=== PATIENT | male | born 1955 | race African-American/Black ===

== ENCOUNTER 2021-03-24 14:41 | Emergency (ER) | payer OTHER, SELFPAY ==
--- NOTE | ~2021-03-24 | US_ITS ---
EXAMINATION: ULTRASOUND SCROTUM. CLINICAL INFORMATION: Hydrocele. Pain. COMPARISON: None TECHNIQUE: Routine ultrasound scrotum and Doppler imaging was performed. FINDINGS: The right testes is homogeneous in echotexture measuring 4.7 x 2.1 x 3.2 cm and volume 16.5 mL. No focal lesion seen. The right epididymis is visualized and appears normal with a small epididymal cyst measuring 0.2 x 0.2 cm. There is normal vascular flow seen to right testes and epididymis. There is no hydrocele or varicocele. The left testes measures 4.0 x 2.4 x 2.7 cm and volume 13.8 mL. There is homogeneous in echotexture. Normal vascular the left scrotum. There is a large left hydrocele with epididymis not visualized. There is a small left appendage. The scrotal wall is normal. Normal vascular flow seen to left testes. US/US venous duplex LE RT IMPRESSION: Large left hydrocele with left appendage visualized. Left epididymis is not seen. Normal bilateral testes with normal vascular flow on Doppler study. Small right epididymal cyst.
--- NOTE | ~2021-03-24 | US_ITS ---
EXAMINATION: ULTRASOUND SCROTUM. CLINICAL INFORMATION: Hydrocele. Pain. COMPARISON: None TECHNIQUE: Routine ultrasound scrotum and Doppler imaging was performed. FINDINGS: The right testes is homogeneous in echotexture measuring 4.7 x 2.1 x 3.2 cm and volume 16.5 mL. No focal lesion seen. The right epididymis is visualized and appears normal with a small epididymal cyst measuring 0.2 x 0.2 cm. There is normal vascular flow seen to right testes and epididymis. There is no hydrocele or varicocele. The left testes measures 4.0 x 2.4 x 2.7 cm and volume 13.8 mL. There is homogeneous in echotexture. Normal vascular the left scrotum. There is a large left hydrocele with epididymis not visualized. There is a small left appendage. The scrotal wall is normal. Normal vascular flow seen to left testes. US/US scrotum IMPRESSION: Large left hydrocele with left appendage visualized. Left epididymis is not seen. Normal bilateral testes with normal vascular flow on Doppler study. Small right epididymal cyst.
[2021-03-24 15:27] VITALS: BP 100/67; PULSE 70; RESP 18; TEMP 36.8; O2SAT 100; BMI 18.7
[2021-03-24 19:53] VITALS: BP 118/64; PULSE 73; RESP 18; TEMP 36.4; O2SAT 100
--- NOTE | 2021-03-24 20:41 | ED.GENADULT ---
HPI - General Adult General Chief complaint: General Medical Stated complaint: infection in groin area Time Seen by Provider: 03/24/21 20:41 Source: patient Mode of arrival: ambulatory Limitations: no limitations History of Present Illness HPI narrative: patient's history of unprovokedright leg DVT since 08/2010 was on Coumadin until 2014 patient is homeless and stopped taking it as he is homeless now and has not been followed up with anyone now complaining of discomfort in right thigh for last few months no leg swelling no shortness of breath no leg pain. Also patient complaining of some swelling of scrotum for last 3 months after straining no known trauma no problem urinating. No fever or chills Related Data Previous Rx's Medication Instructions Recorded apixaban [Eliquis DVT-PE Treat 30D 5 mg PO PER PKG DIR #74 ea 03/24/21 Start] Allergies Allergy/AdvReac Type Severity Reaction Status Date / Time codeine [CODEINE] Allergy Unknown VOMITING Unverified 03/24/21 15:27 Review of Systems Review of Systems: Constitutional : No Weight loss, No Fever, No Chills ENT/Mouth : No sore throat, No Rhinorrhea Eyes: No Eye Pain, No Swelling Cardiovascular : No Chest Pain, no palpitations Respiratory : No Cough, No Sputum, no shortness of breath Gastrointestinal : no Nausea, No Vomiting, No Diarrhea, No abdominal Pain, no black stools Genitourinary : No Dysuria, No Urinary Frequency Musculoskeletal : No joint pain, No Myalgias, No Joint Swelling Skin : No Skin Lesions, No rash Neuro : No Weakness, No Numbness, No Dizziness, No Headache Psych : No Anxiety/Panic, No Depression Heme/Lymph: No Bruising, No Lymphadenopathy Endocrine : No Polyuria, No Polydipsia All other systems reviewed and are negative [facility] Past Medical History Medical History Blood clot in vein Social History Social History Advance Directives: No Advance Directives Information Provided: Yes Physical Exam Vital Signs: Vital Signs: Last Vital Signs Temp 97.5 F 03/24/21 19:53 Pulse 78 03/24/21 23:46 Resp 16 03/24/21 23:46 BP 116/74 03/24/21 23:46 Pulse Ox 99 03/24/21 23:46 Body Mass Index 18.7 Const: General: no acute distress Orientation/consciousness: patient oriented x3 HENMT: Head: Yes normocephalic Eyes: General: appearance normal, both eyes and all related structures Neck: Neck: Yes normal visual inspection Resp: Effort & Inspection: normal respiratory effort Auscultation: clear to auscultation bilaterally Cardio: Palpation: normal PMI Rate: regular rate Rhythm: regular rhythm Heart sounds: S1 normal heart sound present and S2 normal heart sound present GI: Inspection: Yes normal to inspection Palpation (GI): Soft to palpation and nontender : General: Yes Bimanual renal exam normal bilaterally Penis: normal penis Meatus: meatus normal Scrotum: Hydrocele present bilateral and diffuse Back/Spine/Pelvis: Thoracic/Lumbar Spine: thoracic and lumbar spine normal to inspection Skin: General skin exam: no rashes or lesions noted Neuro: General: patient oriented x3 Extrem: Upper/lower leg/hip images: 1. mild tenderness right thigh no swelling noticed no skin changes Medical Decision Making MDM Narrative Medical decision making narrative: patient with left femoral DVT and left hydrocele was started on Eliquis advised to follow with urologist Lab Data Lab results reviewed: Yes I reviewed the patient's lab results. Result diagrams: 03/24/21 21:18 03/24/21 21:18 Labs: Lab Results 03/24/21 03/24/21 03/24/21 Range/Units 21:18 21:18 21:18 WBC 5.1 (4.8-10.8) X10*3/uL RBC 4.01 L (4.60-5.80) X10*6/uL Hgb 12.9 L (14.0-18.0) g/dl Hct 38.1 L (42-52) % MCV 95.0 (80-98) fL MCH 32.2 (27.0-33.0) pg MCHC 33.9 (31.0-36.0) g/dl RDW 11.8 (11.0-16.0) % Plt Count 140 L (160-400) X10*3/uL MPV 9.9 (9.4-12.4) fL Immature Gran % (Auto) 0.2 (0.0-0.4) % Neut % (Auto) 56.5 (45-73) % Lymph % (Auto) 26.9 (20-40) % Turner % (Auto) 8.8 (2-11) % Eos % (Auto) 7.2 H (0-4) % Baso % (Auto) 0.4 (0-2) % Lymph # (Auto) 1.4 (1.2-4.9) X10*3/uL Turner # (Auto) 0.5 (0.1-1.2) X10*3/uL Eos # (Auto) 0.4 (0.0-0.4) X10*3/uL Baso # (Auto) 0.0 (0.0-0.2) X10*3/uL Abs Immat Gran (auto) 0.01 (0.00-0.03) X10*3/uL Absolute Neuts (auto) 2.9 (2.0-8.3) X10*3/uL Absolute Nucleated RBC 0.000 (0.0-0.012) X10*3/uL Nucleated RBC % (auto) 0.0 (0.0-0.2) /100WBC Smear Tech's Comments VERIFIED PT 11.1 (10.8-13.0) SEC INR 0.9 (0.9-1.1) APTT 39.4 H (24.1-38.0) SEC Sodium 140 (135-145) mmol/L Potassium 4.9 (3.3-5.1) mmol/L Chloride 104 (96-108) mmol/L Carbon Dioxide 29 (22-29) mmol/L Anion Gap 12 (12-20) BUN 25 H (9-16) mg/dL Creatinine 1.20 (0.5-1.4) mg/dL Estim Creat Clear Calc 55.0 Estimated GFR > 60 Random Glucose 101 (60-115) mg/dL Calcium 9.3 (8.4-10.2) mg/dL Urine Color Urine Appearance Urine pH (5.0-8.0) Ur Specific [place] (1.005-1.025) Urine Protein (NEG-TRACE) MG/DL Urine Glucose (UA) (NEG) MG/DL Urine Ketones (NEG) MG/DL Urine Blood (NEG) Urine Nitrite (NEG) Ur Leukocyte Esterase (NEG) Urine RBC (0) /HPF Urine WBC (0-4) /HPF Ur Squamous Epith Cells /LPF Urine Bacteria /LPF 03/24/21 Range/Units 21:57 WBC (4.8-10.8) X10*3/uL RBC (4.60-5.80) X10*6/uL Hgb (14.0-18.0) g/dl Hct (42-52) % MCV (80-98) fL MCH (27.0-33.0) pg MCHC (31.0-36.0) g/dl RDW (11.0-16.0) % Plt Count (160-400) X10*3/uL MPV (9.4-12.4) fL Immature Gran % (Auto) (0.0-0.4) % Neut % (Auto) (45-73) % Lymph % (Auto) (20-40) % Turner % (Auto) (2-11) % Eos % (Auto) (0-4) % Baso % (Auto) (0-2) % Lymph # (Auto) (1.2-4.9) X10*3/uL Turner # (Auto) (0.1-1.2) X10*3/uL Eos # (Auto) (0.0-0.4) X10*3/uL Baso # (Auto) (0.0-0.2) X10*3/uL Abs Immat Gran (auto) (0.00-0.03) X10*3/uL Absolute Neuts (auto) (2.0-8.3) X10*3/uL Absolute Nucleated RBC (0.0-0.012) X10*3/uL Nucleated RBC % (auto) (0.0-0.2) /100WBC Smear Tech's Comments PT (10.8-13.0) SEC INR (0.9-1.1) APTT (24.1-38.0) SEC Sodium (135-145) mmol/L Potassium (3.3-5.1) mmol/L Chloride (96-108) mmol/L Carbon Dioxide (22-29) mmol/L Anion Gap (12-20) BUN (9-16) mg/dL Creatinine (0.5-1.4) mg/dL Estim Creat Clear Calc Estimated GFR Random Glucose (60-115) mg/dL Calcium (8.4-10.2) mg/dL Urine Color YELLOW Urine Appearance CLEAR Urine pH 6.5 (5.0-8.0) Ur Specific [place] 1.015 (1.005-1.025) Urine Protein NEG (NEG-TRACE) MG/DL Urine Glucose (UA) NEG (NEG) MG/DL Urine Ketones NEG (NEG) MG/DL Urine Blood TRACE (NEG) Urine Nitrite NEG (NEG) Ur Leukocyte Esterase NEG (NEG) Urine RBC 1-4 (0) /HPF Urine WBC 0-2 (0-4) /HPF Ur Squamous Epith Cells TRACE /LPF Urine Bacteria TRACE /LPF Discharge Plan Discharge Clinical Impression: DVT of leg (deep venous thrombosis), Hydrocele Patient Disposition: Home, Self-Care Instructions: Hydrocele (ED), Deep Vein Thrombosis (ED) Additional Instructions: take Eliquis 10 mg twice daily for 7 days then 5 mg twice daily. Follow-up with primary care doctor for further follow-up follow-up with urologist for surgery for hydrocele scrotal support as advised Prescriptions: New Eliquis DVT-PE Treat 30D Start 5 mg (74 tabs) tablets,dose pack 5 mg PO PER PKG DIR Qty: 74 RF: 0 Referrals: Elvin Cox MD [Physician] - 1 week Interventions: ED Discharge Assessment Last Done: 03/24/21 23:47 Discharge Date/Time: 03/24/21 23:48
[2021-03-24 21:30] LABS: Basophils Percent Auto 0.4 % (0-2); Hemoglobin 12.9 g/dl (14.0-18.0); Imm Gran Abs Auto 0.01 X10*3/uL (0.00-0.03); Imm Gran Pct Auto 0.2 % (0.0-0.4); MANUAL DIFF FLAG SCAN; PLT CLUMP 1; Red Cell Distribution Width 11.8 % (11.0-16.0); SCAN SMEAR FLAG 1
[2021-03-24 21:32] LABS: Eosinophils Absolute Auto 0.4 X10*3/uL (0.0-0.4); Eosinophils Percent Auto 7.2 % (0-4); Hematocrit 38.1 % (42-52); Lymphocytes Absolute Auto 1.4 X10*3/uL (1.2-4.9); Lymphocytes Percent Auto 26.9 % (20-40); Mean Corpuscular HGB Conc 33.9 g/dl (31.0-36.0); Mean Corpuscular Hemoglobin 32.2 pg (27.0-33.0); Mean Platelet Volume 9.9 fL (9.4-12.4); Monocytes Absolute Auto 0.5 X10*3/uL (0.1-1.2); Monocytes Percent Auto 8.8 % (2-11); Neutrophils Absolute Auto 2.9 X10*3/uL (2.0-8.3); Neutrophils Percent Auto 56.5 % (45-73); Platelet Count 140 X10*3/uL (160-400); Red Blood Count 4.01 X10*6/uL (4.60-5.80); White Blood Count 5.1 X10*3/uL (4.8-10.8)
[2021-03-24 21:35] LABS: SLIDE REVIEW VERIFIED
[2021-03-24 21:36] LABS: INTERNATIONAL NORM RATIO 0.9 (0.9-1.1); Prothrombin Time 11.1 SEC (10.8-13.0)
[2021-03-24 21:38] LABS: Partial Thromboplastin Time 39.4 SEC (24.1-38.0)
[2021-03-24 21:56] LABS: Anion Gap 12 (12-20); Blood Urea Nitrogen 25 mg/dL (9-16); Calcium 9.3 mg/dL (8.4-10.2); Carbon Dioxide 29 mmol/L (22-29); Chloride 104 mmol/L (96-108); Estimated Glomerular Filt Rate > 60; Glucose Random 101 mg/dL (60-115); Potassium 4.9 mmol/L (3.3-5.1); Sodium 140 mmol/L (135-145)
[2021-03-24 22:18] LABS: Glucose Urine UA NEG (NEG); Leukocyte Esterase Urine NEG (NEG); Nitrite Urine NEG (NEG); PH 6.5 (5.0-8.0); Specific Gravity - Urine 1.015 (1.005-1.025); Urine Blood TRACE (NEG); Urine Ketones NEG (NEG); Urine Protein NEG (NEG-TRACE)
[2021-03-24 22:19] LABS: Appearance Urine CLEAR; Color Urine YELLOW
[2021-03-24 22:25] LABS: WBC Urine 0-2 /HPF (0-4)
[2021-03-24 22:26] LABS: Bacteria Urine TRACE /LPF; Squamous Epithelial Cell Urine TRACE /LPF
[2021-03-24] MEDS: traMADoL HCL 50 MG TABLET PO (23:36)
[2021-03-24] MEDS: Apixaban 5 MG TABLET 10 MG PO (23:36)
--- NOTE | 2021-03-24 23:44 | PC.NURSE ---
pt ambulatory with steady gait, family at bedside. pt agrees to take eliquis rx once discharged and follow up with MD Cox. pt able to void and empty bladder.
--- NOTE | 2021-03-24 23:45 | PC.NURSE ---
pt had 3 sandwiches and 3 containers of juice while awaiting results.
[2021-03-24 23:46] VITALS: BP 116/74; PULSE 78; RESP 16; O2SAT 99
== END 2021-03-24 23:48 | disposition home or self-care (01) ==
PROVIDERS: Emergency Provider Internal Medicine
DX: I82.811 Embolism and thrombosis of superficial veins of right lower extremity (principal); I82.431 Acute embolism and thrombosis of right popliteal vein; N43.3 Hydrocele, unspecified; Z86.718 Personal history of other venous thrombosis and embolism; Z59.0 Homelessness
CPT/HCPCS: 36415; 76870; 80048; 81001; 85025; 85610; 85730; 93971; 99284

== ENCOUNTER → 2021-05-06 13:47 | Outpatient (BNVA) | payer MEDICARE, MEDICAID, SELFPAY | PROVIDERS: Visit Provider Urology | DX: N50.82 Scrotal pain (principal); N43.3 Hydrocele, unspecified; Z88.5 Allergy status to narcotic agent | CPT/HCPCS: 99202 ==

== ENCOUNTER 2021-06-16 12:39 | Outpatient (REF) | payer MEDICARE, MEDICAID, SELFPAY ==
[2021-06-16 13:16] LABS: MANUAL DIFF FLAG NO
[2021-06-16 13:19] LABS: Basophils Percent Auto 0.7 % (0-2); Eosinophils Absolute Auto 0.2 X10*3/uL (0.0-0.4); Eosinophils Percent Auto 4.5 % (0-4); Hematocrit 41.1 % (42-52); Hemoglobin 13.9 g/dl (14.0-18.0); Imm Gran Abs Auto 0.01 X10*3/uL (0.00-0.03); Imm Gran Pct Auto 0.2 % (0.0-0.4); Lymphocytes Absolute Auto 1.3 X10*3/uL (1.2-4.9); Mean Corpuscular HGB Conc 33.8 g/dl (31.0-36.0); Mean Corpuscular Hemoglobin 31.5 pg (27.0-33.0); Mean Corpuscular Volume 93.2 fL (80-98); Mean Platelet Volume 10.2 fL (9.4-12.4); Monocytes Absolute Auto 0.4 X10*3/uL (0.1-1.2); Monocytes Percent Auto 8.5 % (2-11); Neutrophils Absolute Auto 2.5 X10*3/uL (2.0-8.3); Neutrophils Percent Auto 57.1 % (45-73); Platelet Count 146 X10*3/uL (160-400); Red Blood Count 4.41 X10*6/uL (4.60-5.80); Red Cell Distribution Width 11.6 % (11.0-16.0); White Blood Count 4.5 X10*3/uL (4.8-10.8)
[2021-06-16 15:21] LABS: Alanine Aminotransferase 68 U/L (0-40); Alkaline Phosphatase 157 U/L (39-117); Anion Gap 11 (12-20); Aspartate Amino Transferase 52 U/L (5-37); Blood Urea Nitrogen 16 mg/dL (9-16); Calcium 9.7 mg/dL (8.4-10.2); Carbon Dioxide 29 mmol/L (22-29); Chloride 105 mmol/L (96-108); Cholesterol 258 mg/dL; Estimated Glomerular Filt Rate 54; Glucose Fasting 98 mg/dL (60-99); HDL Cholesterol 124 mg/dL; LDL Cholesterol Calculated 123 mg/dl; Potassium 5.2 mmol/L (3.3-5.1); Sodium 140 mmol/L (135-145); Total Protein 7.1 g/dL (6.5-8.0); Triglycerides 55 mg/dL
== END 2021-06-16 12:40 | disposition home or self-care (01) ==
LOC: HO.LAB 12:39
PROVIDERS: PCP Internal Medicine; Visit Provider Internal Medicine
DX: D64.9 Anemia, unspecified (principal); N50.89 Other specified disorders of the male genital organs; E78.5 Hyperlipidemia, unspecified
CPT/HCPCS: 36415; 80053; 80061; 85025

== ENCOUNTER → 2021-06-26 10:46 | Outpatient (BNVA) | payer MEDICARE, MEDICAID, SELFPAY | PROVIDERS: PCP Internal Medicine; Referring Provider Internal Medicine; Visit Provider Nurse Practitioner Family | DX: Z01.810 Encounter for preprocedural cardiovascular examination (principal); I82.411 Acute embolism and thrombosis of right femoral vein; R94.31 Abnormal electrocardiogram [ECG] [EKG]; N43.3 Hydrocele, unspecified | CPT/HCPCS: 93005; 99202 ==

== ENCOUNTER → 2021-06-27 07:59 | Outpatient (REF) | payer MEDICARE, MEDICAID, SELFPAY ==
--- NOTE | 2021-06-27 08:09 | CA_ITS ---
Transthoracic Echocardiogram Patient (Last, First, Middle): Zaki Nevarez, Gender: Male Date of : 1955 Age: 66 Procedure Date: 06/27/2021 Procedure Type: Transthoracic Echocardiogram Location: OP Height: 170.18 cm Weight: 60.33 kg BSA: 1.70 m2 Heart Rate: bpm BP: 128 / 60 mmHg Manager Human Resources: DEMETRIUS Referring MD: Candy Paredes MARINE PIPEFITTER HELPER-Dulce Maria Symptoms: R94.31 - Abnormal electrocardiogram [ECG] [EKG] Study Quality: Fair ECG Rhythm: Sinus Conclusions: - The left ventricular systolic function is normal. The calculated ejection fraction is 65% by biplane method. - No obvious valvular pathology seen on this study. Findings Left Ventricle Normal left ventricular cavity size. There is normal left ventricular wall thickness. The left ventricular systolic function is normal. The calculated ejection fraction is 65% by biplane method. There is no evidence of regional wall motion abnormalities. Diastolic function is normal for age. Right Ventricle Normal right ventricular cavity size and systolic function. Atria The left atrium is normal in size. The right atrium is normal in size. Aortic Valve There is a normal trileaflet aortic valve. There is no aortic valve stenosis. There is no aortic valve regurgitation. Mitral Valve The mitral valve appears normal. There is no mitral valve regurgitation. There is no mitral valve stenosis. Pulmonic Valve The pulmonic valve was not well visualized. Tricuspid Valve Normal tricuspid valve structure. There is trace tricuspid valve regurgitation. Tricuspid regurgitation envelope is inadequate for calculation of right ventricular systolic pressure. Great Vessels The asc aorta is normal in size. Venous The inferior vena cava is normal in size and collapses greater than 50% with inspiration. Pericardium/Pleural There is no evidence of pericardial effusion. Prior Study Comparison No prior study available for comparison. Recommendations, Care & Conclusions No obvious valvular pathology seen on this study. Measurements 2D Linear Measurements IVSd: 0.84 0.6-0.9/0.6-1.0 cm LVIDd: 3.96 3.9-5.3/4.2-5.9 cm LVIDd Index: 2.33 2.4-3.2/2.2-3.1 cm/m2 LVIDs: 2.53 2.0-3.6 cm LVPWd: 0.97 0.7-1.1 cm Ao Root: 3.00 2.1-3.5 cm LA Diam: 2.40 2.7-3.8/3.0-4.0 cm LAIDs Index: 1.41 1.5-2.3 cm/m2 LV Mass: 134.79 67-162/88-224 g LV Mass Index: 79.29 43-95/49-115 g/m2 LVOT Diam: 2.00 3.0+(-)1.3 cm 2D Systolic Function EF 4C: 65.10 >55% EF 2C: 64.00 >55% EF BiP: 64.70 >55% Mitral Valve MV Pk E: 0.52 MV PK A: 0.64 MV Decel Time: 159.00 E/A: 0.80 E'Lateral: 11.10 E'Medial: 7.40 E/E' Med: 7.00 E/E' Lat: 4.70 PHT: 47.00 MVA PHT: 4.68 Decel [place]: 3.26 Aortic Valve AoV Pk Roberto: 1.12 AoV Mn Roberto: 0.70 AoV VTI: 0.27 AoV Pk Grad: 5.00 Aov Mn Grad: 2.00 PARVIN Cont.VTI: 2.12 LVOT LVOT Pk Roberto: 0.67 LVOT Mn Roberto: 0.45 LVOT VTI: 0.18 LVOT Pk Grad: 2.00 LVOT Mn Grad: 1.00 LVOT Diam: 2.00 LVOT Area: 3.14 Diastolic Function MV Pk E: 0.52 MV Pk A: 0.64 E/A: 0.80 E'Medial: 7.40 E/E' Med: 7.00 E' Laterial: 11.10 E/E' Lat: 4.70 Right Ventricle TAPSE (mm): 32.00 Great Vessels Aorta Ao Root-2D: 3.00 2.0-3.7 cm Ao Asc: 3.00 2.1-3.4 cm Pulmonary Valve PV Pk Roberto: 0.91 Peak PV Grad: 3.00 Updated in Other Vendor System with Status of Final Jomar Bee MD electronically signed on 06/28/2021 11:31:11 AM with status of Final
== END ==
LOC: HO.CARD 07:59
PROVIDERS: Visit Provider Internal Medicine Cardiovascular Disease
DX: Z01.810 Encounter for preprocedural cardiovascular examination (principal); R94.31 Abnormal electrocardiogram [ECG] [EKG]
CPT/HCPCS: 93306

== ENCOUNTER → 2021-08-04 11:14 | Day surgery (SDC) | payer MEDICARE, MEDICAID, SELFPAY ==
--- NOTE | 2021-08-01 10:09 | HO.ANESPROP2 ---
Documented by User: Carmen Yao NP 08/11/21 14:32 HPI - Anesthesia Eval Consult details Narrative: Pt cx'd DOS d/t crack cocaine use. 66yo M for Hydrocele Repair Eliquis for recurrent DVT. OK to hold 48 hours per heme Cardiac cleared at Low to intermed risk Polysubstance abuse PMF Active Problems Active Problems: All Active Problems (Updated 06/29/21 @ 18:06 by Liv Tejeda MD) Preop cardiovascular exam (Acute) Abnormal finding on EKG (Acute) Pancytopenia (Acute) HUDSON (generalized anxiety disorder) (Acute) Elevated cholesterol (Acute) Moderate recurrent major depression (Acute) DVT (deep venous thrombosis) (Acute) Scrotal edema (Acute) Hydrocele (Acute) Past Medical History Medical History Anemia Blood clot in vein DVT (deep venous thrombosis) Elevated cholesterol HUDSON (generalized anxiety disorder) GERD (gastroesophageal reflux disease) Moderate recurrent major depression Smoker Family History Family History Mother High blood cholesterol High blood pressure Father No problems noted. Other Substance abuse Surgical History Surgical History No pertinent past surgical history Social History Social History Housing: Homeless Alcohol intake: current Alcohol intake frequency: a few times a week Alcohol type: hard liquor Patient Tobacco Use Status: Current everyday Tobacco user Tobacco use type: Cigarette Cigarettes Per Day: 10 Second Hand Smoke Exposure: Yes Substance Use Type: Crack/Cocaine and Marijuana service: No Current occupational status: disabled Meds Allergies Allergy/AdvReac Type Severity Reaction Status Date / Time codeine [CODEINE] Allergy Intermediate VOMITING Verified 06/26/21 11:03 Exam Exam Date and Time: August 01, 2021 1009 Pertinent Lab Results Pertinent Lab Results: Laboratory Tests 06/26/21 06/26/21 09:18 09:18 WBC 5.0 Hgb 14.4 Hct 42.7 Plt Count 172 Sodium 141 Potassium 4.7 Chloride 104 Carbon Dioxide 27 BUN 15 Creatinine 1.38 Narrative Narrative: ECHO 05/2021 Conclusions: - The left ventricular systolic function is normal.? The ? calculated ejection fraction is 65% by biplane method. ? - No obvious valvular pathology seen on this study.?? EKG 05/2021 sinus rhythm with PACs, ST and T-wave abnormality inferiorly, biphasic T-wave V3, no prior EKG for comparison, rate 64, QTC 342 millisecond Assessment and Plan Assessment Anesthesia Assessment: Chart Reviewed Documented by User: Suma Weathers MD 09/11/21 08:24 PMFSH Past Medical History Medical History Anemia Blood clot in vein DVT (deep venous thrombosis) Elevated cholesterol HUDSON (generalized anxiety disorder) GERD (gastroesophageal reflux disease) Moderate recurrent major depression Smoker Family History Family History Mother High blood cholesterol High blood pressure Father No problems noted. Other Substance abuse Surgical History Surgical History No pertinent past surgical history Social History Social History Housing: Homeless Alcohol intake: current Alcohol intake frequency: a few times a week Alcohol type: hard liquor Patient Tobacco Use Status: Current everyday Tobacco user Tobacco use type: Cigarette Cigarettes Per Day: 10 Second Hand Smoke Exposure: Yes Substance Use Type: Crack/Cocaine and Marijuana service: No Current occupational status: disabled Meds Allergies Allergy/AdvReac Type Severity Reaction Status Date / Time codeine [CODEINE] Allergy Intermediate VOMITING Verified 06/26/21 11:03
== END ==
PROVIDERS: PCP Internal Medicine; Visit Provider Urology
DX: N43.3 Hydrocele, unspecified (principal); Z53.8 Procedure and treatment not carried out for other reasons

== ENCOUNTER 2022-01-28 15:19 | Emergency (ER) | payer MEDICARE, MEDICAID, SELFPAY ==
--- NOTE | ~2022-01-28 | XR_ITS ---
EXAMINATION: XR CHEST CLINICAL INFORMATION: Cough COMPARISON: 06/23/2018 TECHNIQUE: 2 views of the chest were obtained. FINDINGS: Right basilar opacity may represent developing infiltrate. Otherwise lung joseph are felt to be comparable to previous. Hilar regions are comparable. The cardiac silhouette is not enlarged. There is no effusion. XR/XR chest 2V IMPRESSION: Mild right basilar opacity may represent a developing infiltrate. Follow-up films are recommended after treatment to assess for resolution and establish baseline. 4-6 weeks. The left lung is clear. No effusion.
[2022-01-28 16:07] VITALS: BP 130/70; PULSE 72; RESP 17; TEMP 36.8; O2SAT 98; BMI 19.8
[2022-01-28 16:27] LABS: MANUAL DIFF FLAG NO
[2022-01-28 16:29] LABS: Basophils Percent Auto 0.3 % (0-2); Eosinophils Absolute Auto 0.1 X10*3/uL (0.0-0.4); Eosinophils Percent Auto 1.5 % (0-4); Hematocrit 39.2 % (42.0-52.0); Hemoglobin 13.3 g/dl (14.0-18.0); Imm Gran Abs Auto 0.03 X10*3/uL (0.00-0.03); Imm Gran Pct Auto 0.5 % (0.0-0.4); Lymphocytes Absolute Auto 1.4 X10*3/uL (1.2-4.9); Lymphocytes Percent Auto 20.3 % (20-40); Mean Corpuscular HGB Conc 33.9 g/dl (31.0-36.0); Mean Corpuscular Hemoglobin 31.1 pg (27.0-33.0); Mean Corpuscular Volume 91.6 fL (80.0-98.0); Mean Platelet Volume 9.8 fL (9.4-12.4); Monocytes Absolute Auto 0.5 X10*3/uL (0.1-1.2); Monocytes Percent Auto 8.1 % (2-11); Neutrophils Absolute Auto 4.6 x10*3/uL (2.0-8.3); Neutrophils Percent Auto 69.3 % (45-73); Platelet Count 181 X10*3/uL (160-400); Red Blood Count 4.28 X10*6/uL (4.60-5.80); Red Cell Distribution Width 11.1 % (11.0-16.0); White Blood Count 6.7 X10*3/uL (4.8-10.8)
[2022-01-28 16:47] LABS: Alanine Aminotransferase 55 U/L (0-40); Albumin Level 4.1 g/dL (3.5-5.0); Alkaline Phosphatase 170 U/L (39-117); Anion Gap 11 (12-20); Aspartate Amino Transferase 39 U/L (5-37); Blood Urea Nitrogen 16 mg/dL (9-16); COVID-19 Test Negative (Negative); Calcium 9.5 mg/dL (8.4-10.2); Carbon Dioxide 30 mmol/L (22-29); Chloride 102 mmol/L (96-108); Creatinine Clr Calc Pharmacy 55.6; Estimated Glomerular Filt Rate > 60; Glucose Random 99 mg/dL (60-115); IDNOW Serial# 16C4AD1C; Sodium 138 mmol/L (135-145); Total Protein 8.2 g/dL (6.5-8.0)
[2022-01-28 16:48] LABS: Influenza A Negative (Negative); Influenza B2 Negative (Negative)
[2022-01-28 17:42] LABS: Lipase 31 U/L (8-78)
--- NOTE | 2022-01-28 18:43 | ED_ITS ---
HPI - General Adult General Chief complaint: General Medical Stated complaint: abd pain Time Seen by Provider: 01/28/22 17:02 Source: patient Mode of arrival: ambulatory Limitations: no limitations History of Present Illness HPI narrative: abdominal pain and coughing up yellow mucous. Patient has been taking mucinex but it is not better. He has more shortness of breath. Patient has been sick one week, patient is not vaccinated against COVID. patient is a smoker. Abdominal pain is worse with coughing. Onset (ago): week(s) Severity: mild Quality: aching Pain Consistency: intermittent Exacerbating factors: other (cough) Related Data Previous Rx's Medication Instructions Recorded apixaban 5 mg tablet 5 mg PO BID #60 tab 01/26/22 albuterol sulfate 90 mcg/actuation 2 puff INHALATION QID PRN #8.5 g 01/28/22 aerosol inhaler azithromycin 250 mg tablet 250 mg PO DIRECTED 5 Days #6 tab 01/28/22 azithromycin 250 mg tablet 250 mg PO DAILY 4 Days #4 tab 01/28/22 Allergies Allergy/AdvReac Type Severity Reaction Status Date / Time codeine [CODEINE] Allergy Intermediate VOMITING Verified 01/28/22 16:10 Review of Systems Constitutional: Constitutional: Reports no additional constitutional complaints Eyes: Eyes: Reports no additional eye complaints ENT: Denies dizziness Cardiovascular: Cardiovascular: Reports no additional cardiovascular complaints Respiratory: Respiratory: Reports as per HPI Gastrointestinal: Gastrointestinal: Reports no additional gastrointestinal complaints Musculoskeletal: Musculoskeletal: Reports no additional musculoskeletal complaints Integumentary/Breasts: Skin/Breast: Denies rash Neurologic: Reports system reviewed and no additional complaints, except as documented, Denies dizziness and Denies Sensory deficit (Neuro) Psychiatric: Psychiatric: Denies anxiety PMFSH Past Medical History Medical History Anemia Blood clot in vein DVT (deep venous thrombosis) Elevated cholesterol HUDSON (generalized anxiety disorder) GERD (gastroesophageal reflux disease) History of rectal bleeding Moderate recurrent major depression Smoker Surgical History No pertinent past surgical history Family History Family History Mother High blood cholesterol High blood pressure Father No problems noted. Other Substance abuse Social History Social History Housing: Homeless Alcohol intake: current Alcohol intake frequency: holidays/special occasions only Alcohol type: hard liquor Patient Tobacco Use Status: Current everyday Tobacco user Tobacco use type: Cigarette Cigarette Packs Per Day: 1 Cigarettes Per Day: 20.0 Smoked in Last 30 Days: Yes e-Cigarette/Vaping Use: Never Used Second Hand Smoke Exposure: Yes Use of substances other than those prescribed or required for medical reasons: Yes Substance Use Type: Crack/Cocaine and Marijuana Substance Use Frequency: Chronic Longstanding Last Used Substance: Hours (ago) Any prior treatment program specific to substance use: No Advance Directives: No Advance Directives Information Provided: No service: No Current occupational status: disabled Physical Exam ED Vital Signs: Vital Signs - 24 hr 01/28/22 16:07 01/28/22 18:55 01/28/22 19:27 Temperature 98.2 F 98.3 F Pulse Rate 72 74 78 Respiratory Rate 17 18 18 Blood Pressure 130/70 121/84 Pulse Oximetry 98 97 BMI result Body Mass Index 19.8 Const General: healthy appearing Nutritional Appearance: average body habitus Orientation/consciousness: oriented to person and patient oriented x3 Limitations: no limitations HENMT Head: Yes normal to inspection Ears: external ears normal General nose exam: Normal external nose present Mouth: Normal oral and palatal mucosa present and oropharynx normal Throat: Yes posterior oropharynx normal Eyes General: appearance normal, both eyes and all related structures Neck Neck: Yes normal visual inspection Chest Chest palpation & inspection: normal inspection of the chest Resp Other: slight diffuse wheeze Cardio Jugular venous distension: no JVD Rate: regular rate Rhythm: regular rhythm Heart sounds: S1 normal heart sound present and S2 normal heart sound present GI Inspection: Yes normal to inspection Palpation (GI): Soft to palpation, nontender and No hepatosplenomegaly present Auscultation: normal bowel sounds General: Yes no CVA tenderness Back/Spine/Pelvis Back: no CVA tenderness Skin General skin exam: no rashes or lesions noted Neuro General: oriented to person and patient oriented x3 Cranial nerves: Yes CN's II-XII intact bilaterally Motor exam (neuro): 5/5 motor strength present throughout Sensory Exam: No Sensory deficit (Neuro) Extrem General: Yes normal to inspection Psych Appearance: grossly normal Course Reevaluation(s) Reevaluation #1: patient with a small RLL infiltrate will dc on azithromycin Time: 19:57 Medical Decision Making Lab Data Result diagrams: 01/28/22 16:22 01/28/22 16:22 Labs: Lab Results 01/28/22 01/28/22 01/28/22 Range/Units 16:22 16:22 16:22 WBC 6.7 (4.8-10.8) X10*3/uL RBC 4.28 L (4.60-5.80) X10*6/uL Hgb 13.3 L (14.0-18.0) g/dl Hct 39.2 L (42.0-52.0) % MCV 91.6 (80.0-98.0) fL MCH 31.1 (27.0-33.0) pg MCHC 33.9 (31.0-36.0) g/dl RDW 11.1 (11.0-16.0) % Plt Count 181 (160-400) X10*3/uL MPV 9.8 (9.4-12.4) fL Immature Gran % (Auto) 0.5 H (0.0-0.4) % Neut % (Auto) 69.3 (45-73) % Lymph % (Auto) 20.3 (20-40) % [place] % (Auto) 8.1 (2-11) % Eos % (Auto) 1.5 (0-4) % Baso % (Auto) 0.3 (0-2) % Lymph # (Auto) 1.4 (1.2-4.9) X10*3/uL [place] # (Auto) 0.5 (0.1-1.2) X10*3/uL Eos # (Auto) 0.1 (0.0-0.4) X10*3/uL Baso # (Auto) 0.0 (0.0-0.2) X10*3/uL Abs Immat Gran (auto) 0.03 (0.00-0.03) X10*3/uL Absolute Neuts (auto) 4.6 (2.0-8.3) x10*3/uL Absolute Nucleated RBC 0.000 (0.0-0.012) X10*3/uL Nucleated RBC % (auto) 0.0 (0.0-0.2) /100WBC Sodium 138 (135-145) mmol/L Potassium 5.0 (3.3-5.1) mmol/L Chloride 102 (96-108) mmol/L Carbon Dioxide 30 H (22-29) mmol/L Anion Gap 11 L (12-20) BUN 16 (9-16) mg/dL Creatinine 1.17 (0.5-1.4) mg/dL Estim Creat Clear Calc 55.6 Estimated GFR > 60 Random Glucose 99 (60-115) mg/dL Calcium 9.5 (8.4-10.2) mg/dL Total Bilirubin 1.0 (0.0-1.0) mg/dL AST 39 H (5-37) U/L ALT 55 H (0-40) U/L Alkaline Phosphatase 170 H (39-117) U/L Total Protein 8.2 H (6.5-8.0) g/dL Albumin 4.1 (3.5-5.0) g/dL Lipase 31 (8-78) U/L Urine Color Urine Appearance Urine pH (5.0-8.0) Ur Specific [place] (1.005-1.025) Urine Protein (NEG-TRACE) MG/DL Urine Glucose (UA) (NEG) MG/DL Urine Ketones (NEG) MG/DL Urine Blood (NEG) Urine Nitrite (NEG) Ur Leukocyte Esterase (NEG) COVID-19 (BEV) (Negative) COVID-19 Clin Com Influenza Type A (KAYLEE) Negative (Negative) Influenza Type B (KAYLEE) Negative (Negative) Influenza A & B Note See Note 01/28/22 01/28/22 Range/Units 16:22 19:42 WBC (4.8-10.8) X10*3/uL RBC (4.60-5.80) X10*6/uL Hgb (14.0-18.0) g/dl Hct (42.0-52.0) % MCV (80.0-98.0) fL MCH (27.0-33.0) pg MCHC (31.0-36.0) g/dl RDW (11.0-16.0) % Plt Count (160-400) X10*3/uL MPV (9.4-12.4) fL Immature Gran % (Auto) (0.0-0.4) % Neut % (Auto) (45-73) % Lymph % (Auto) (20-40) % [place] % (Auto) (2-11) % Eos % (Auto) (0-4) % Baso % (Auto) (0-2) % Lymph # (Auto) (1.2-4.9) X10*3/uL [place] # (Auto) (0.1-1.2) X10*3/uL Eos # (Auto) (0.0-0.4) X10*3/uL Baso # (Auto) (0.0-0.2) X10*3/uL Abs Immat Gran (auto) (0.00-0.03) X10*3/uL Absolute Neuts (auto) (2.0-8.3) x10*3/uL Absolute Nucleated RBC (0.0-0.012) X10*3/uL Nucleated RBC % (auto) (0.0-0.2) /100WBC Sodium (135-145) mmol/L Potassium (3.3-5.1) mmol/L Chloride (96-108) mmol/L Carbon Dioxide (22-29) mmol/L Anion Gap (12-20) BUN (9-16) mg/dL Creatinine (0.5-1.4) mg/dL Estim Creat Clear Calc Estimated GFR Random Glucose (60-115) mg/dL Calcium (8.4-10.2) mg/dL Total Bilirubin (0.0-1.0) mg/dL AST (5-37) U/L ALT (0-40) U/L Alkaline Phosphatase (39-117) U/L Total Protein (6.5-8.0) g/dL Albumin (3.5-5.0) g/dL Lipase (8-78) U/L Urine Color YELLOW Urine Appearance CLEAR Urine pH 6.0 (5.0-8.0) Ur Specific [place] 1.010 (1.005-1.025) Urine Protein NEG (NEG-TRACE) MG/DL Urine Glucose (UA) NEG (NEG) MG/DL Urine Ketones NEG (NEG) MG/DL Urine Blood NEG (NEG) Urine Nitrite NEG (NEG) Ur Leukocyte Esterase NEG (NEG) COVID-19 (BEV) Negative (Negative) COVID-19 Clin Com See Note Influenza Type A (KAYLEE) (Negative) Influenza Type B (KAYLEE) (Negative) Influenza A & B Note Imaging Data Chest x-ray: Radiologist's impression: IMPRESSION: Mild right basilar opacity may represent a developing infiltrate. Follow-up films are recommended after treatment to assess for resolution and establish baseline. 4-6 weeks. The left lung is clear. No effusion. Discharge Plan Discharge Clinical Impression: Pneumonia Patient Disposition: Home, Self-Care Instructions: Pneumonia (ED) Prescriptions: New azithromycin 250 mg tablet 250 mg PO DAILY 4 Days Qty: 4 0RF Rx Instructions: start on day 2 of therapy albuterol sulfate 90 mcg/actuation HFA aerosol inhaler 2 puff inhalation QID PRN (Reason: shortness of breath or wheezing) Qty: 8.5 0RF No Action azithromycin 250 mg tablet 250 mg PO DIRECTED 5 Days Qty: 6 0RF Rx Instructions: Take 2 tabs the first day, then 1 tab for the next 4 days apixaban 5 mg tablet 5 mg PO BID Qty: 60 3RF
[2022-01-28 18:55] VITALS: BP 121/84; PULSE 74; RESP 18; TEMP 36.8; O2SAT 97
[2022-01-28] MEDS: Albuterol Sulfate 90 MCG 8 GM INHALER 4 PUFF INHALE (19:24)
[2022-01-28 19:27] VITALS: PULSE 78; RESP 18; O2SAT 99
[2022-01-28 19:48] LABS: Appearance Urine CLEAR; Color Urine YELLOW; Glucose Urine UA NEG (NEG); Leukocyte Esterase Urine NEG (NEG); Nitrite Urine NEG (NEG); Urine Blood NEG (NEG); Urine Ketones NEG (NEG); Urine Protein NEG (NEG-TRACE)
[2022-01-28] MEDS: Azithromycin 500 MG TABLET PO (20:09)
== END 2022-01-28 20:03 | disposition home or self-care (01) ==
PROVIDERS: Emergency Medicine; Emergency Provider Emergency Medicine; PCP Internal Medicine
DX: J18.9 Pneumonia, unspecified organism (principal); F17.210 Nicotine dependence, cigarettes, uncomplicated; Z86.718 Personal history of other venous thrombosis and embolism; Z20.822 Contact with and (suspected) exposure to COVID-19
CPT/HCPCS: 71046; 80053; 81003; 83690; 85025; 87502; 87635; 94640; 99284

== ENCOUNTER 2023-06-23 17:19 | Outpatient (AMB) | payer MEDICARE, MEDICAID, SELFPAY ==
--- NOTE | 2023-06-23 17:21 | A.OFFVIS_ITS ---
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 He has had a colonoscopy in the past but does not recall when and where. He complains of blood in the stools and will be referred to Gastroenterology. Had a DVT in 2009 unprovoke and had another DVT 2020 and this is why he needs Eliquis indefinitely. He smoke crack cocaine and last use was 2 days ago. Has mild major depression and declines counseling or medication. [facility] Medical History History of rectal bleeding HUDSON (generalized anxiety disorder) Moderate recurrent major depression DVT (deep venous thrombosis) Anemia Smoker GERD (gastroesophageal reflux disease) Elevated cholesterol Blood clot in vein Surgical History No pertinent past surgical history Family History Mother High blood cholesterol High blood pressure Father No problems noted. Other Substance abuse Social History (Updated 06/23/23 @ 17:50 by Sonia Bernard MD) Housing: Homeless Alcohol intake: current Alcohol intake frequency: 0-2 drinks per day Alcohol type: beer, wine and hard liquor Patient Tobacco Use Status: Current everyday Tobacco user Tobacco use type: Cigarette Cigarette Packs Per Day: 1 Cigarettes Per Day: 20.0 e-Cigarette/Vaping Use: Never Used Second Hand Smoke Exposure: Yes Substance Use Type: Crack/Cocaine and Marijuana service: No Current occupational status: disabled Questionnaire Medicare Wellness Checkup [age] 65-70 What gender do you identify with?: male During the past 4 weeks, how much have you been bothered by emotional problems such as feeling anxious, depressed, irritable, sad or downhearted, and blue?: moderately During the past 4 weeks, has your physical & emotional health limited your social activities with family, friends, neighbors, or groups?: slightly During the past 4 weeks, how much bodily pain have you generally had?: mild pain During the past 4 weeks, was someone available to help you if you needed & wanted help?: yes, as much as I wanted During the past 4 weeks, what was the hardest physical activity you could do for at least 2 minutes?: moderate Can you get to places out of walking distance without help? (For eg., can you travel alone on buses, taxis or drive your car?): Yes Can you go shopping for groceries or clothes without someone's help?: Yes Can you prepare your own meals?: Yes Can you do your housework without help?: Yes Because of any health problems, do you need the help of another person with your personal care needs such as eating, bathing, dressing or getting around the house?: No Can you handle your own money without help?: Yes During the past 4 weeks, how would you rate your health in general?: good During the past 4 weeks how have things been going for you?: good & bad parts about equal Are you having difficulties driving your car?: not applicable, I don't use a car Do you always fasten your seat belt when you are in a car?: yes, sometimes During past 4 weeks, have you been bothered by the following: never: Teeth or denture problems? and Problems using the telephone?, sometimes: Falling or dizzy when standing up, Sexual problems? and Trouble eating well? and often: Tiredness or fatigue? Have you fallen 2 or more times in the past year?: No Are you afraid of falling?: Yes Are you a smoker?: yes, but I'm not ready to quit During the past 4 weeks, how many drinks of wine, beer, or other alcoholic beverages did you have?: 2-5 drinks per week Do you exercise for about 20 minutes 3 or more times a week?: no, I usually do not exercise this much Have you been given information to help with the following?: no: Hazards in your house that might hurt you? and no: Keeping track of your medications? How often do you have trouble taking medicines the way you have been told to take them?: sometimes I take medicine as prescribed How confident are you that you can control & manage most of your health pr oblems?: somewhat confident What is your race?: Black or Mini Mental State Exam (MMSE) Orientation What is the (year) (season) (date) (day) (month)?: year, season, day and month Where are we (state) (county) (town or city) (hospital) (floor)?: state, county, town or city, hospital/clinic and floor Registration Name of 3 unrelated objects clearly and slowly, then ask patient to repeat all 3 of them. (1st repeat determines score. Make sure they can repeat all three): object 1, object 2 and object 3 Attention & Calculation (CHOOSE ONE) Spell WORLD backwards (DLROW): 5 letters Recall Ask patient to repeat the 3 items from question #3.: object 1, object 2 and object 3 Language Show patient a wristwatch & ask what it is. Repeat for pencil.: watch and pencil Ask the patient to repeat the phrase 'No ifs, ands, or buts' after you.: correct Ask the patient to 'take a piece of paper with their right hand' 'fold paper in half' 'place paper on floor': take paper in right hand, fold paper in half and p lace paper on floor Print the sentence 'CLOSE YOUR EYES' on a piece. If patient actually closes eyes then score.: followed written direction Give patient a blank piece of paper & ask to write a sentence. Score if it contains a noun & verb.: sentence contains subject and verb Ask patient to copy figure of intersecting pentagons exactly. Score if all 10 angles & 2 intersects are included.: all 10 angles present & 2 are intersected Score Score: 29 Activity of Daily Living Bathing - sponge bath, tub bath or shower: receives no assistance (gets in/out by self, if usual bathing means Dressing - getting clothes from closets & drawers, including inner/outer garments & fasteners.: gets clothes & gets completely dressed without help Toileting - going to the 'toilet room' for urine/bowel elimination & cleaning self/arranging clothes: goes to toilet room, cleans self, arranges clothes without help Transfer: moves in & out of bed and chair without help (may use support object) Continence: controls urination/bowel movements completely by self Feeding: feeds self without help Total Score: 0 Information obtained from: patient Using telephone: independent Traveling: independent Shopping: independent Preparing meals: independent Housework: independent Taking medicine: independent Managing money: independent PHQ-9 Over the last 2 weeks, how often have you been bothered by any of the following problems? 1. Little interest or pleasure in doing things: several days 2. Feeling down, depressed, or hopeless: several days 3. Trouble falling or staying asleep, or sleeping too much: several days 4. Feeling tired or having little energy: several days 5. Poor appetite or overeating: several days 6. Feeling bad about yourself - or that you are a failure or have let yourself or your family down: not at all 7. Trouble concentrating on things, such as reading the newspaper or watching te levision: not at all 8. Moving or speaking so slowly that other people could have noticed. Or the opposite - being so fidgety or restless that you have been moving around a lot more than usual: more than half the days 9. Thoughts that you would be better off or of hurting yourself in some way: not at all Total score: 7 Depression Screening Interpretation: Positive Depression Screening Follow-up: Existing condition 59805 - PHQ-9 Billing: Yes Source: Developed by Drs. Uche Miramontes, Jodee Mercado, Shahbaz Sue and colleagues, with an educational marybel from [employer]. HUDSON-7 AMB Questionnaire HUDSON-7 Date HUDSON - 7 assessed: 06/23/23 Feeling nervous, anxious, or on edge: 1 = Several days Not being able to stop or control worryin = Not at all Worrying too much about different things: 1 = Several days Trouble relaxin = Not at all Being so restless that it is hard to sit still: 0 = Not at all Becoming easily annoyed or irritable: 1 = Several days Feeling afraid as if something awful might happen: 0 = Not at all Total HUDSON-7 score (0-4 normal; 5-9 mild; 10-14 moderate; 15-21 severe): 3 Source: Developed by Drs. Uche Miramontes, Jodee Mercado, Shahbaz Sue and colleagues, with an educational marybel from [employer]. HUDSON-7 Assessment Billing HUDSON-7 Assessment Tool: HUDSON-7 Assessment 91478 Review of Systems Const All systems reviewed & are unremarkable except as noted in HPI and below Eyes Reports no additional complaints, Denies change in vision and Denies other visual disturbances Card Denies chest pain at rest, Denies chest pain with activity, Denies edema, Denies irregular heart rhythm, Denies claudication, Denies dyspnea, Denies dyspnea on exertion, Denies orthopnea, Denies paroxysmal nocturnal dyspnea and Denies slow heart rate Resp Denies cough, Denies dyspnea and Denies dyspnea on exertion GI Denies abdominal pain, Denies change in bowel habits, Denies excessive flatus, Denies nausea and Denies vomiting Denies urinary hesitancy, Denies urinary incontinence and Denies urinary urgency Musc Denies abnormal gait, Denies atrophy, Denies deformity, Reports arthralgias and Denies limited range of motion Skin/Breast Denies bleeding lesions, Denies changing lesions and Denies rash Neuro Denies abnormal gait, Denies behavioral changes, Denies confusion and Denies lack of coordination Psych Denies behavioral changes, Denies confusion and Reports depression Physical Exam Vital Signs: Last Vital Signs BP 112/76 06/23/23 17:25 BMI result Body Mass Index 19.8 Const General: No confusion Orientation/consciousness: No confusion HEENT Ears: hearing grossly normal bilaterally Resp Auscultation: clear to auscultation bilaterally Cardio Heart sounds: S1 normal heart sound present and S2 normal heart sound present Neuro General: No confusion Gait exam (Neuro): Normal gait present Romberg Test: Negative Assessment & Plan Assessment & Plan Orders: Orders Complete Blood Count Auto Diff Today D64.9 - Anemia, unspecified Comprehensive [place]. Panel Fast Today I82.411 - Acute embolism and thrombosis of right femoral vein XR clavicle LT Today M89.8X1 - Other specified disorders of bone, shoulder Lipid Panel Today E78.5 - Hyperlipidemia, unspecified XR shoulder LT min 2V Today M25.512 - Pain in left shoulder Referrals Gastroenterology Referral K92.1 - Melena Medications: Changed From apixaban 5 mg PO BID 60 tabs 3RF I82.411 - Acute embolism and thrombosis of right femoral vein To apixaban 5 mg PO BID 90 days 180 tabs 3RF I82.411 - Acute embolism and thrombosis of right femoral vein Quality Reporting (2019) Depression/Bipolar (159/160/161/177) PHQ-9: Total score: 7 Coding Level of Care Code Medicare First (G0438) CPT Codes Advance Care Planning - Time spent: 1-15 minutes, on File ([id number]) Additional Codes HUDSON-7 Assessment Billing - HUDSON-7 Assessment Tool: HUDSON-7 Assessment 61897 ([id number]) Time Spent (min) 38 Advance Care Planning Advance Care Planning discussion: Completed/Scanned Date of discussion: 06/23/23 Who was present: patient, student Luis and Forms completed: GOLD Time spent: 1-15 minutes, on File Actual minutes spent: 5 Did not discuss due to Cultural/Spiritual beliefs: No
[2023-06-23 17:25] VITALS: BP 112/76; BMI 19.8
== END 2023-06-23 18:05 | disposition home or self-care (01) ==
LOC: HO.HMGH 17:19
PROVIDERS: PCP Internal Medicine; Visit Provider Internal Medicine
DX: Z00.00 Encounter for general adult medical examination without abnormal findings (principal); I82.411 Acute embolism and thrombosis of right femoral vein; F33.1 Major depressive disorder, recurrent, moderate
CPT/HCPCS: 1123F; G0438

== ENCOUNTER 2024-02-23 12:25 | Outpatient (AMB) | payer MEDICARE, MEDICAID, SELFPAY ==
--- NOTE | 2024-02-23 14:33 | MHC.OFFWIV ---
Intake Vital Signs 02/23/24 14:35 Height 5 ft 10 in Weight 138 lb BMI 19.8 BP 126/78 Blood Pressure Location Rt brachial Position Sitting Pulse 70 Pulse Source Pulse Oximeter Temp 98.5 F Temp Source Oral Pulse Oximetry (%) 96 Intake Visit Reasons: EP chest congestion cough Intake Note: pt is here for cough and chest congestion 4 days Patient Tobacco Use Status: Current everyday Tobacco user Allergies codeine [CODEINE] Allergy (Intermediate, Verified 02/23/24 14:35) VOMITING Do you need a note to return to daycare/school/sports/work: No HPI HPI Comments History of Present Illness Details 68 y/o male patient who presents to walk in clinic with c/o productive cough, SOB and wheezing. [facility] Medical History History of rectal bleeding HUDSON (generalized anxiety disorder) Moderate recurrent major depression DVT (deep venous thrombosis) Anemia Smoker GERD (gastroesophageal reflux disease) Elevated cholesterol Blood clot in vein Surgical History No pertinent past surgical history Family History Mother High blood cholesterol High blood pressure Father No problems noted. Other Substance abuse Social History (Updated 06/23/23 @ 17:50 by Sonia Bernard MD) Housing: Homeless Alcohol intake: current Alcohol intake frequency: 0-2 drinks per day Alcohol type: beer, wine and hard liquor Patient Tobacco Use Status: Current everyday Tobacco user Tobacco use type: Cigarette Cigarette Packs Per Day: 1 Cigarettes Per Day: 20.0 e-Cigarette/Vaping Use: Never Used Second Hand Smoke Exposure: Yes Substance Use Type: Crack/Cocaine and Marijuana service: No Current occupational status: disabled Review of Systems Const All systems reviewed & are unremarkable except as noted in HPI and below Physical Exam Vital Signs: Last Vital Signs Temp 98.5 F 02/23/24 14:35 Pulse 70 02/23/24 14:35 BP 126/78 02/23/24 14:35 Pulse Ox 96 02/23/24 14:35 BMI result Body Mass Index 19.8 Const General: comfortable and no acute distress Nutritional Appearance: underweight Orientation/consciousness: patient oriented x3 HEENT Head: Yes normocephalic Ears: external ears normal and TM's normal bilaterally Face and sinus: Yes sinuses nontender Mouth: moist mucous membranes Throat: Yes posterior oropharynx normal Resp Effort & Inspection: normal respiratory effort, able to speak in complete sentences and Actively coughing Auscultation: no crackles, no rales, rhonchi and wheezes Cardio Rate: regular rate Rhythm: regular rhythm Neuro General: patient oriented x3, gait normal and moves all extremities Psych Speech and movement: Normal speech and movement present Assessment & Plan Assessment & Plan (1) Wheezy bronchitis: Code(s): J40 - Bronchitis, not specified as acute or chronic Plan: - Chest Xray - Abx as directed - Rest Orders: Orders XR chest 2V Today J40 - Bronchitis, not specified as acute or chronic Medications: New azithromycin 500 mg PO DAILY 3 days 3 tabs 0RF J40 - Bronchitis, not specified as acute or chronic, R05.9 - Cough, unspecified doxycycline hyclate 100 mg PO BID 10 days 20 caps 0RF J40 - Bronchitis, not specified as acute or chronic, R05.9 - Cough, unspecified prednisone 50 mg PO DAILY 5 days 5 tabs 0RF J40 - Bronchitis, not specified as acute or chronic Coding Level of Care Code Est Pt Level 4 (65565) Diagnoses Wheezy bronchitis J40 Time Spent (min) 20
[2024-02-23 14:35] VITALS: BP 126/78; PULSE 70; TEMP 36.9; O2SAT 96; BMI 19.8
== END 2024-02-23 15:35 | disposition home or self-care (01) ==
PROVIDERS: PCP Internal Medicine; Visit Provider Nurse Practitioner Family
DX: J40 Bronchitis, not specified as acute or chronic (principal)
CPT/HCPCS: 99214

== ENCOUNTER 2024-02-23 15:14 | Outpatient (REF) | payer MEDICARE, MEDICAID, SELFPAY ==
--- NOTE | ~2024-02-23 | XR_ITS ---
EXAMINATION: XR CHEST CLINICAL INFORMATION: Bronchitis COMPARISON: Previous chest x-ray most recent January 2022 TECHNIQUE: 2 views of the chest were obtained. FINDINGS: The cardiac and mediastinal contours are normal. The lungs are well-inflated. There is bilateral bronchial wall thickening. No evidence of pneumonia. No pleural effusion or pneumothorax. Mild degenerative changes of the spine. XR/XR chest 2V IMPRESSION: Hyperinflation. Bronchial wall thickening. No evidence of pneumonia.
== END 2024-02-23 15:15 | disposition home or self-care (01) ==
LOC: HO.HMGCX 15:14
PROVIDERS: PCP Internal Medicine; Visit Provider Nurse Practitioner Family
DX: J40 Bronchitis, not specified as acute or chronic (principal)
CPT/HCPCS: 71046

== ENCOUNTER → 2024-06-06 10:59 | Outpatient (RCR) | payer MEDICARE, MEDICAID, SELFPAY ==
--- NOTE | 2021-06-26 08:25 | PM.HEMONCCN ---
Subjective - Subjective Chief complaint: Consult for:1. Anemia. 2. DVT. Patient: new to practice Consult date: 06/26/21 Primary Care Provider: Sonia Bernard MD Medical Summary: DIAGNOSIS: 1. ANEMIA. 2. DVT. HPI - Consult Narrative Reason for consult: CONSULT FOR: 1. Anemia. 2. DVT. Narrative: Zaki Nevarez is a pleasant 66 year old gentleman, with DVT. and H/O Anemia. He has a history of Unprovoked Deep Venous Thrombosis of the right leg in August 2010. He was being followed in hematology clinic. He had a workup for hypercoagulable state which was negative. He was treated with warfarin. He stopped taking the Coumadin. He was last here in November of 2013 after which he was lost to follow-up. 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 No acute thrombus. In March 24, 2021, he developed pain in his right lower extremity. He was seen in the emergency room. 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 One of duplicated veins from the right superficial femoral vein to the popliteal vein is has acute clot. He was started on Eliquis. However, he tells me he ran out of Eliquis about 2-3 weeks ago, so currently he is off of it. PFSH 1. Hydrocele. 2.Anemia, 3. GERD 4. Elevated cholesterol. ROS: He does feel rather fatigued. No fever nor chills. Appetite is so-so. He has lost weight. He complains of headaches on occasion. He denies any chest pain or shortness of breath. He gets occasional abdominal pain. No nausea or vomiting. Bowels are working without any gross blood in it. He was noted to have a hydrocele about 5 months ago. He would like to have that operated upon. His hands lock sometimes. He denies any focal weakness. He does have depression/stress. Family history: Denies any known family history of blood clots. Social history: He currently lives with a friend in [place]. He is homeless. His mom is involved in his care and she is accompanying him today. He is a smoker and was advised to quit. He has moderate depression with anxiety and will be referred to counseling. Review of Systems - Constitutional Reports system reviewed and no additional complaints, except as documented, Reports fatigue, Reports headache(s), Reports lack of energy, Reports malaise, Reports weight loss - Eyes Reports system reviewed and no additional complaints, except as documented, Denies blurry vision - ENT Reports system reviewed and no additional complaints, except as documented - Cardiovascular Reports system reviewed and no additional complaints, except as documented, Denies chest pain at rest - Respiratory Reports no additional respiratory complaints - Gastrointestinal Reports system reviewed and no additional complaints, except as documented - Genitourinary Genitourinary: Reports no additional male genitourinary complaints, Reports scrotal swelling, Reports testicular lump, Reports testicular pain, Denies blood in urine - Musculoskeletal Reports system reviewed and no additional complaints, except as documented, Denies back pain - Integumentary/Breasts Skin/Breast: Reports no additional skin complaints, Denies bleeding lesions - Neurologic Reports system reviewed and no additional complaints, except as documented - Psychiatric Reports system reviewed and no additional complaints, except as documented, Reports anxiety, Reports depression - Endocrine Reports no additional endocrine complaints, Denies excessive sweating - Hematologic/Lymphatic Reports system reviewed and no additional complaints, except as documented, Denies easy bleeding - Allergic/Immunologic Reports system reviewed and no additional complaints, except as documented Oncology Screenings - ECOG Performance Status ECOG Performance Status: 0 [facility] Medical History: Medical History (Last Reviewed 06/26/21 @ 11:36 by Candy Paredes NP-C) Anemia Blood clot in vein DVT (deep venous thrombosis) Elevated cholesterol HUDSON (generalized anxiety disorder) GERD (gastroesophageal reflux disease) Moderate recurrent major depression Smoker Functional capacity: independent ambulation Patient : No Family History: Family History (Last Reviewed 06/26/21 @ 11:36 by Candy Paredes NP-C) Mother High blood cholesterol High blood pressure Father No problems noted. Other Substance abuse Surgical History: Surgical History (Last Reviewed 06/26/21 @ 11:36 by VENU Evans) No pertinent past surgical history Social History: Social History (Last Reviewed 06/26/21 @ 11:36 by Candy Paredes NP-C) Living Situation History: Housing: Homeless Alcohol History: Alcohol intake: current Alcohol History Details: Alcohol intake frequency: a few times a week Alcohol type: hard liquor Tobacco History: Patient Tobacco Use Status: Current everyday Tobacco Tobacco use type: Cigarette Second Hand Smoke Exposure: Yes Substance Use History: Substance Use Type: Marijuana Substance Use Type: Crack/Cocaine Occupation Assessmet: service: No Current occupational status: disabled Home Medications and Allergies Allergies Allergy/AdvReac Type Severity Reaction Status Date / Time codeine [CODEINE] Allergy Intermediate VOMITING Verified 06/26/21 11:03 Physical Exam - Constitutional Present: no acute distress - Routine HEENT Exam Head: Present: normal inspection Eye: Present: normal appearance ENT: Present: mucous membranes moist - Routine Neck Exam Present: supple. Absent: lymphadenopathy - Routine Respiratory Exam Present: CTAB - Routine Cardiovascular Exam Cardiovascular: Present: RRR, S1, S2 - Routine Extremities Exam Present: pedal edema, tenderness - Routine Skin Exam Present: intact - Routine Neurological Exam Present: alert, oriented X3 - Detailed Neurological Exam: Coma Scale Eye Opening: Spontaneous (4) Motor Response: Obeys commands (6) - Routine Psychiatric Exam Present: normal mood Hem/Onc Consult Result - Labs CBC & Chem 7: 06/26/21 09:18 06/26/21 09:18 Assessment and Plan Patient Active problem list reviewed?: Yes (1) DVT (deep venous thrombosis) Status: Acute Assessment and plan: A 66-year-old male here for evaluation because of unprovoked DVT. He has a history of DVT of right leg back in August of 2010. He had a previous evaluation for hypercoagulable workup. He was checked for: Prothrombin mutation and factor V Leiden which were all negative. Lupus anticoagulant, anticardiolipin antibody, AT3 antigen and activity. These came back negative. He was last seen here in November of 2013. Subsequently he was lost to follow-up. He was on Coumadin, but then stopped taking it a few years ago. Likely in January of 2014 since he did not visit the Coumadin clinic after that. He was seen in the emergency room 03/24 for right lower extremity pain and swelling. 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 One of duplicated veins from the right superficial femoral vein to the popliteal vein is has acute clot. The soft tissue appears normal. He has been on Eliquis however he is not taking it on a regular basis. I reiterated to him that he needs to stay on the blood thinner for it to be effective otherwise he can risk developing a pulmonary embolism. PLAN: He will stay on the Eliquis 5 mg b.i.d. Since this is the 2nd clot he will need to take it on the long-term basis. He has a hydrocele that needs to be taken care off. He can hold Eliquis for 48 hours prior to the procedure and then resume. He will return in 3 months for a follow-up visit. Thank you, CC: Dr. Manning. Dr. Cox. (2) Pancytopenia Status: Acute Assessment and plan: 66-year-old gentleman who has had chronic pancytopenia. He previously had iron studies in 11/11 which revealed: IRON 65 IBC 264 SATURATION 25 FERRITIN 174 - Time Spent With Patient Time Spent with Patient (in minutes): 35
[2021-06-26 08:58] VITALS: BP 116/59; PULSE 60; RESP 12; TEMP 37.2; O2SAT 99; BMI 18.1
[2021-06-26 09:31] LABS: MANUAL DIFF FLAG NO
[2021-06-26 09:33] LABS: Basophils Percent Auto 0.4 % (0-2); Eosinophils Absolute Auto 0.2 X10*3/uL (0.0-0.4); Eosinophils Percent Auto 3.6 % (0-4); Hematocrit 42.7 % (42-52); Hemoglobin 14.4 g/dl (14.0-18.0); Imm Gran Abs Auto 0.01 X10*3/uL (0.00-0.03); Imm Gran Pct Auto 0.2 % (0.0-0.4); Lymphocytes Absolute Auto 1.6 X10*3/uL (1.2-4.9); Mean Corpuscular HGB Conc 33.7 g/dl (31.0-36.0); Mean Corpuscular Hemoglobin 31.4 pg (27.0-33.0); Mean Platelet Volume 10.1 fL (9.4-12.4); Monocytes Absolute Auto 0.5 X10*3/uL (0.1-1.2); Neutrophils Absolute Auto 2.7 X10*3/uL (2.0-8.3); Neutrophils Percent Auto 54.8 % (45-73); Platelet Count 172 X10*3/uL (160-400); Red Blood Count 4.59 X10*6/uL (4.60-5.80); Red Cell Distribution Width 11.5 % (11.0-16.0)
[2021-06-26 09:41] LABS: D Dimer 395 NG/ML
[2021-06-26 09:59] LABS: Alanine Aminotransferase 51 U/L (0-40); Albumin Level 4.4 g/dL (3.5-5.0); Alkaline Phosphatase 149 U/L (39-117); Anion Gap 15 (12-20); Aspartate Amino Transferase 38 U/L (5-37); Bilirubin Total 0.9 mg/dL (0.0-1.0); Blood Urea Nitrogen 15 mg/dL (9-16); Carbon Dioxide 27 mmol/L (22-29); Chloride 104 mmol/L (96-108); Creatinine Clr Calc Pharmacy 45.6; Estimated Glomerular Filt Rate 52; Glucose Random 91 mg/dL (60-115); Potassium 4.7 mmol/L (3.3-5.1); Sodium 141 mmol/L (135-145); Total Protein 7.9 g/dL (6.5-8.0)
--- NOTE | 2021-11-11 15:58 | HO.HEMONCSCH ---
CALLED PATIENT DUE TO THE PATIENT NO SHOWING TODAYS APPT . PATIENT DID NOT ANSWER I LEFT A MESSAGE INFORMING PATIENT TO CALL BACK SO WE CAN RESCHEDULE APPT . WILL TRY AGAIN BEFORE THE END OF THE DAY .
== END | disposition home or self-care (01) ==
LOC: HO.ONC 06-26 08:14
PROVIDERS: PCP Internal Medicine; Referring Provider Internal Medicine; Visit Provider Internal Medicine Medical Oncology
DX: I82.411 Acute embolism and thrombosis of right femoral vein (principal); I82.431 Acute embolism and thrombosis of right popliteal vein; D61.818 Other pancytopenia; Z79.01 Long term (current) use of anticoagulants; Z59.0 Homelessness; Z91.14 Patient's other noncompliance with medication regimen
CPT/HCPCS: 36415; 80053; 85025; 85379; 99204